=== PATIENT | female | born 1950 | race Caucasian/White ===

== ENCOUNTER 2019-06-18 11:24 | Emergency (ER) | payer OTHER ==
[~2019-06-18] VITALS: Ht 154.9 cm; Wt 83.9 kg
[2019-06-18] MEDS ORDERED: ZOFRAN ODT4 MG DISSOLVE (13:42)
[2019-06-18 14:10] VITALS: BP 178/89
== END 2019-06-18 14:12 | disposition home or self-care (01) ==
LOC: ER 11:24
DX: J30.9 Allergic rhinitis, unspecified (principal); R04.0 Epistaxis; I11.0 Hypertensive heart disease with heart failure; I50.9 Heart failure, unspecified; M79.7 Fibromyalgia; M19.90 Unspecified osteoarthritis, unspecified site; G62.9 Polyneuropathy, unspecified; F17.210 Nicotine dependence, cigarettes, uncomplicated; Z91.013 Allergy to seafood; Z91.041 Radiographic dye allergy status; Z88.6 Allergy status to analgesic agent; Z88.8 Allergy status to other drugs, medicaments and biological substances